=== PATIENT | female | born 1975 | race Caucasian/White ===

== ENCOUNTER 2020-06-03 17:11 | Outpatient (REF) | payer OTHER, SELFPAY ==
[2020-06-03 18:08] LABS: Alanine Aminotransferase 13 U/L (0-31); Albumin Level 4.7 g/dL (3.5-5.0); Alkaline Phosphatase 74 U/L (39-117); Anion Gap 15 (12-20); Aspartate Amino Transferase 20 U/L (5-31); Bilirubin Direct 0.2 mg/dL (0.0-0.5); Bilirubin Total 0.4 mg/dL (0.0-1.0); Blood Urea Nitrogen 13 mg/dL (9-16); C Reactive Protein 0.43 mg/dL (< or = 0.50); Calcium 9.6 mg/dL (8.4-10.2); Carbon Dioxide 28 mmol/L (22-29); Chloride 100 mmol/L (96-108); Cholesterol 449 mg/dL; Estimated Glomerular Filt Rate 58; Glucose Random 83 mg/dL (60-115); HDL Cholesterol 41 mg/dL; Potassium 3.9 mmol/l (3.3-5.1); Sodium 139 mmol/L (135-145); Total Protein 7.5 g/dL (6.5-8.0); Triglycerides 436 mg/dL
[2020-06-03 18:29] LABS: Thyroid Stimulating Hormone 51.84 uIU/mL (0.32-4.0)
== END 2020-06-03 17:12 | disposition home or self-care (01) ==
LOC: HO.LAB 17:11
PROVIDERS: PCP Internal Medicine; Visit Provider Internal Medicine
DX: F32.9 Major depressive disorder, single episode, unspecified (principal)
CPT/HCPCS: 80048; 80061; 80076; 84443; 86140